=== PATIENT | female | born 1995 | race Caucasian/White ===

== ENCOUNTER 2018-04-07 04:50 | Inpatient (IN) | payer OTHER ==
[2018-04-07] MEDS ORDERED: LACTATED RINGER'S 1,000 ML IV (05:40)
[2018-04-07 05:46] LABS: ADD MAN DIFF? NO
[2018-04-07 05:52] LABS: BASOPHILS % 0.3 % (0.0-2.0); EOSINOPHILS % 0.3 % (0.0-7.0); HEMATOCRIT 39.3 % (37.0-47.0); HEMOGLOBIN 13.6 g/dl (12.0-16.0); LYMPHOCYTES # 2.1 10^3/ul (0.8-2.9); LYMPHOCYTES % 17.7 % (15.0-51.0); MEAN CORPUSCULAR HEMOGLOBIN 30.6 pg (29.0-33.0); MEAN CORPUSCULAR HGB CONC 34.6 g/dl (32.0-37.0); MEAN CORPUSCULAR VOLUME 88.3 fl (82.0-101.0); MEAN PLATELET VOLUME 11.6 fl (7.4-10.4); MONOCYTE # 0.7 10^3/ul (0.3-0.9); MONOCYTES % 5.9 % (0.0-11.0); NEUTROPHIL # 8.9 10^3/ul (1.6-7.5); PLATELET COUNT 218 10^3/UL (140-415); RED BLOOD COUNT 4.45 10^6/ul (4.20-5.40); RED CELL DISTRIBUTION WIDTH 12.7 % (11.5-14.5)
[2018-04-07 05:52] LABS: WHITE BLOOD COUNT 11.8 10^3/ul (4.8-10.8)
[2018-04-07] MEDS ORDERED: AMPICILLIN 2 GM/NS (PMX) 100 ML (05:55)
[2018-04-07] MEDS ORDERED: METHYLERGONOVINE 0.2 MG INJ IM ×2 (06:00→08:30)
[2018-04-07] MEDS ORDERED: OXYTOCIN 30 UNITS/LR 500 ML IV ×2 (06:00→08:30)
[2018-04-07] MEDS ORDERED: CARBOPROST 250 MCG INJ IM ×2 (06:00→08:30)
[2018-04-07] MEDS ORDERED: MISOPROSTOL 200 MCG TAB PR ×2 (06:00→08:30)
[2018-04-07] MEDS ORDERED: BUTORPHANOL 2 MG INJ IV (06:00)
[2018-04-07] MEDS ORDERED: IBUPROFEN 600 MG TAB PO (06:00)
[2018-04-07] MEDS: AMPICILLIN 2 GM/NS (PMX) 100 ML IV (06:01)
[2018-04-07] MEDS: LACTATED RINGER'S 1,000 ML IV (06:01)
[2018-04-07] MEDS: MINERAL OIL LIGHT 10 ML VIAL TOP ×2 (06:22→06:30)
[2018-04-07 06:26] LABS: INR 0.87; PROTIME 11.9 Sec (11.9-14.9); PT RATIO 0.9
[2018-04-07 06:27] LABS: PARTIAL THROMBOPLASTIN TIME 26.6 Sec (23.0-35.0)
[2018-04-07] MEDS: OXYTOCIN 30 UNITS/LR 500 ML IV ×2 (06:35→06:57)
[2018-04-07] MEDS: LIDOCAINE 1% (MPF) 30 ML INJ INJ (06:44)
[2018-04-07 06:45] LABS: HEPATITIS B SURFACE ANTIGEN NEGATIVE (NEGATIVE)
[2018-04-07] MEDS ORDERED: OXYCODONE/ASPIRIN (4.88/325) TAB PO (08:30)
[2018-04-07] MEDS ORDERED: ZOLPIDEM 5 MG TAB PO (08:30)
[2018-04-07] MEDS: SENNA/DOCUSATE NA (8.6MG/50MG) TAB PO ×2 (09:27→21:11)
[2018-04-07] MEDS ORDERED: AMPICILLIN 1 GM/NS (PMX) 50 ML IV (10:00)
[2018-04-07] MEDS: IBUPROFEN 600 MG TAB PO ×3 (11:50→23:38)
[2018-04-07] MEDS: BENZOCAINE 20% 56 ML SPRAY TOP (11:50)
[2018-04-07] MEDS: WITCH HAZEL/GLYCERIN PAD PR (11:50)
[2018-04-07] MEDS: LANOLIN HPA 1 PKT TOP (11:50)
[2018-04-07 15:03] LABS: RAPID PLASMA REAGIN NONREACTIVE (NR)
[2018-04-08] MEDS: IBUPROFEN 600 MG TAB PO ×3 (05:30→17:52)
[2018-04-08 08:06] LABS: ADD MAN DIFF? NO
[2018-04-08 08:11] LABS: BASOPHIL # 0.1 10^3/ul (0.0-0.1); BASOPHILS % 0.5 % (0.0-2.0); EOSINOPHILS # 0.1 10^3/ul (0.0-0.5); EOSINOPHILS % 0.7 % (0.0-7.0); HEMATOCRIT 34.7 % (37.0-47.0); HEMOGLOBIN 11.6 g/dl (12.0-16.0); LYMPHOCYTES # 2.9 10^3/ul (0.8-2.9); LYMPHOCYTES % 21.7 % (15.0-51.0); MEAN CORPUSCULAR HEMOGLOBIN 30.4 pg (29.0-33.0); MEAN CORPUSCULAR HGB CONC 33.4 g/dl (32.0-37.0); MEAN CORPUSCULAR VOLUME 91.1 fl (82.0-101.0); MEAN PLATELET VOLUME 11.2 fl (7.4-10.4); MONOCYTE # 0.9 10^3/ul (0.3-0.9); MONOCYTES % 6.6 % (0.0-11.0); NEUTROPHIL # 9.4 10^3/ul (1.6-7.5); NEUTROPHILS % 69.9 % (39.0-77.0); PLATELET COUNT 169 10^3/UL (140-415); RED BLOOD COUNT 3.81 10^6/ul (4.20-5.40); RED CELL DISTRIBUTION WIDTH 13.2 % (11.5-14.5)
[2018-04-08 08:11] LABS: WHITE BLOOD COUNT 13.5 10^3/ul (4.8-10.8)
[2018-04-08] MEDS: LANOLIN HPA 1 PKT TOP (10:19)
[2018-04-08] MEDS: SENNA/DOCUSATE NA (8.6MG/50MG) TAB PO ×2 (10:19→21:28)
[2018-04-09] MEDS: IBUPROFEN 600 MG TAB PO ×3 (00:07→12:03)
[2018-04-09] MEDS: SENNA/DOCUSATE NA (8.6MG/50MG) TAB PO (08:30)
[2018-04-09] MEDS: OXYCODONE/ASPIRIN (4.88/325) TAB PO (08:31)
[2018-04-09] MEDS: DIPHTH/TET/ACEL PERTUSS (ADULT) 0.5 ML VIAL IM* (09:00)
== END 2018-04-09 12:55 | disposition home or self-care (01) | DRG 807 ==
LOC: OBT 04:50 → L-D 04:50 → OBT 05:05 → L-D 05:05 → PP1 08:22
PROVIDERS: Specialist
PROC: 10E0XZZ Delivery of Products of Conception, External Approach (ICD-10-PCS; principal; 2018-04-07)
PROC: 0HQ9XZZ Repair Perineum Skin, External Approach (ICD-10-PCS; 2018-04-07)
DX: O69.81X0 Labor and delivery complicated by cord around neck, without compression, not applicable or unspecified (principal); Z37.0 Single live birth; O70.0 First degree perineal laceration during delivery; Z3A.38 38 weeks gestation of pregnancy
CPT/HCPCS: 85025; 85610; 85730; 86592; 86850; 86900; 86901; 87340; 99464